=== PATIENT | female | born 1955 | race Caucasian/White ===

== ENCOUNTER → 2021-07-18 | Day surgery (SDC) | payer OTHER ==
[~2021-07-18] VITALS: Ht 162.6 cm; Wt 71.7 kg
[~2021-07-18] MED LIST: AZO CRANBERRY1 EAC1 PO; CALCIUM PO; COZAAR100 MG PO; FISH OIL PO; HCTZ25 MG PO; MAGNESIUM PO; SYNTHROID75 MCG PO; THYROID PO; VIT D PO; ZINC50 M3 PO
== END | disposition home or self-care (01) ==
LOC: FAS 08:26
DX: Z12.11 Encounter for screening for malignant neoplasm of colon (principal); I10 Essential (primary) hypertension; Z79.899 Other long term (current) drug therapy; Z90.710 Acquired absence of both cervix and uterus
CPT/HCPCS: J1610; J2250; J2704; J7120